=== PATIENT | female | born 1965 | race Asian ===

== ENCOUNTER 2018-04-22 12:11 | Emergency (ER) | payer OTHER ==
[~2018-04-22] VITALS: Ht 152.4 cm; Wt 55.4 kg
[2018-04-22 12:22] VITALS: BP 133/79
[2018-04-22] MEDS ORDERED: OXYcodone/APAP 5/325MG TABLET ONE (12:54)
[2018-04-22] MEDS ORDERED: OXYcodone/APAP 5/325MG TABLET PO ONE (13:00)
== END 2018-04-22 13:28 | disposition home or self-care (01) ==
LOC: ED 13:01
DX: B02.9 Zoster without complications (principal)
CPT/HCPCS: 99283